=== PATIENT | female | born 1945 | race Caucasian/White ===

== ENCOUNTER 2017-07-21 00:12 | Emergency (ER) | payer OTHER ==
[~2017-07-21] VITALS: Ht 162.6 cm; Wt 72.6 kg
[~2017-07-21 00:12] MED LIST: ALOGLIPTIN25 MG PO; AMPICILLIN TRI250 MG; ASPIR 8181 MG PO; AZITHROMYCIN500 MG PO; BELSOMRA20 MG PO; CIPRO500 MG PO; CIPROFLOXACIN500 M1 PO; CRESTOR10 MG PO; CYMBALTA60 MG PO; FLAGYL500 MG PO; FLEXERIL PO; HYDROCODONE-AP1 EAC6 PO; KEFLEX500 MG PO; KEPPRA 500 MG500 M1; KEPPRA 500 MG500 M1 PO; LEVOTHROID 00.075 M1 PO; LEVOTHYROXIN0.075 MG PO; LEXAPRO20 MG PO; LORAZEPAM 1 MG T1 M1 PO; MEDROL DOSPAK21 TA1; METFORMIN HCL500 MG PO; PERCOCET 5-3251 EACH PO; PREMARIN1.25 MG PO; PRINIVIL10 MG PO; SEIZURE MEDS; SERTRALINE HCL100 MG PO; SIMVASTATIN40 MG PO; SYMBICORT160 MCG/4. INH; SYMBICORT160 MCG/41 INH; TRILIPIX135 MG PO; VENTOLIN HFA 1818 GM INH; VITAMIN B-12500 MCG PO; XANAX1 MG PO
[2017-07-21] MEDS ORDERED: KEPPRA 500 MG500 M1 (00:20)
[2017-07-21 00:30] LABS: ABSOLUTE BASOPHILS 0.2 thou/uL (0.0-0.2); ABSOLUTE EOSINOPHILS 0.7 thou/uL (0.0-0.7); ABSOLUTE LYMPHOCYTES 3.4 thou/uL (0.8-5.3); ABSOLUTE MONOCYTES 1.4 thou/uL (0.0-1.2); ABSOLUTE NEUTROPHILS 12.8 thou/uL (1.6-8.1); BASOPHILS 0.9 %; EOSINOPHILS 3.9 %; HEMATOCRIT 38.1 % (37.0-47.0); HEMOGLOBIN 12.6 gm/dL (12.0-15.0); LYMPHOCYTES 18.6 %; MCH 28.6 pg (26.0-34.0); MCHC 33.1 g/dL (28.0-37.0); MCV 86.3 fL (80.0-100.0); MONOCYTES 7.5 %; MPV 8.2 fl. (7.2-11.1); NUCLEATED RBCS 0 /100WBC; PLATELET COUNT* 352 thou/uL (150-400); POLYS 69.1 %; RBC 4.42 mil/uL (4.20-5.00); RDW-CV 13.9 % (10.5-14.5); WBC 18.5 thou/uL (4.0-11.0)
[2017-07-21 00:37] LABS: CALCIUM 8.8 mg/dL (8.5-10.1); POTASSIUM 3.8 mmol/L (3.5-5.1)
[2017-07-21 00:42] LABS: ALBUMIN 3.2 g/dL (3.4-5.0); TOTAL BILIRUBIN 0.3 mg/dL (<0.1-1.0); TOTAL PROTEIN 7.7 g/dL (6.4-8.2)
[2017-07-21 00:57] LABS: URINE BILIRUBIN NEGATIVE (Negative); URINE BLOOD NEGATIVE (Negative); URINE CLARITY CLEAR; URINE COLOR STRAW; URINE GLUCOSE-RANDOM NEGATIVE (Negative); URINE KETONES NEGATIVE (Negative); URINE LEUKOCYTES-REFLEX NEGATIVE (Negative); URINE NITRITE-REFLEX NEGATIVE (Negative); URINE PROTEIN NEGATIVE (Negative); URINE SPECIFIC GRAVITY <= 1.005 (1.005-1.030); URINE UROBILINOGEN 0.2 E.U./dl (0.2-1.0)
[2017-07-21] MEDS ORDERED: HYDROCODON-ACE1 EAC8 PO (02:42)
[2017-07-21] MEDS ORDERED: CIPROFLOXACIN500 M1 PO (02:42)
[2017-07-21] MEDS ORDERED: FLAGYL500 MG PO (02:42)
[2017-07-21 03:37] VITALS: BP 137/77
[2018-03-09] MEDS ORDERED: MELATONIN5 M1 PO (10:55)
== END 2017-07-21 03:35 | disposition home or self-care (01) ==
LOC: M.ERS 00:12
PROVIDERS: Emergency Medicine
DX: K57.92 Diverticulitis of intestine, part unspecified, without perforation or abscess without bleeding (principal); F32.9 Major depressive disorder, single episode, unspecified; J45.909 Unspecified asthma, uncomplicated; F41.9 Anxiety disorder, unspecified; Z88.6 Allergy status to analgesic agent; Z91.012 Allergy to eggs

== ENCOUNTER 2017-11-29 21:55 | Inpatient (IN) | payer OTHER ==
[~2017-11-29] VITALS: Ht 162.6 cm; Wt 75.3 kg
[~2017-11-29 21:55] MED LIST changes: +HYDROCODON-ACE1 EAC8 PO
[2017-11-29 22:03] VITALS: BP 121/66
[2017-11-29 23:06] LABS: HEMOGLOBIN 13.3 gm/dL (12.0-15.0); MCH 28.6 pg (26.0-34.0); MCHC 33.2 g/dL (28.0-37.0); MCV 86.2 fL (80.0-100.0); MPV 9.1 fl. (7.2-11.1); NUCLEATED RBCS 0 /100WBC; PLATELET COUNT* 373 thou/uL (150-400); RBC 4.64 mil/uL (4.20-5.00); RDW-CV 13.3 % (10.5-14.5); WBC 20.5 thou/uL (4.0-11.0)
[2017-11-29 23:09] LABS: ANION GAP 16 mmol/L (7-16); BUN 11 mg/dL (7-18); CALCIUM 9.6 mg/dL (8.5-10.1); CHLORIDE 96 mmol/L (98-107); CO2 24 mmol/L (21-32); CREATININE 1.3 mg/dL (0.6-1.3); GLUCOSE 170 mg/dL (70-99); POTASSIUM 3.5 mmol/L (3.5-5.1); SODIUM 136 mmol/L (136-145)
[2017-11-29 23:13] LABS: URINE BILIRUBIN NEGATIVE (Negative); URINE BLOOD NEGATIVE (Negative); URINE CLARITY CLEAR; URINE COLOR YELLOW; URINE GLUCOSE-RANDOM NEGATIVE (Negative); URINE KETONES TRACE (Negative); URINE LEUKOCYTES-REFLEX 1+ (Negative); URINE NITRITE-REFLEX NEGATIVE (Negative); URINE PROTEIN NEGATIVE (Negative); URINE SPECIFIC GRAVITY 1.025 (1.005-1.030); URINE UROBILINOGEN 0.2 E.U./dl (0.2-1.0)
[2017-11-29 23:14] LABS: APTT 27.6 Seconds (25.0-31.3); PROTIME 9.8 Seconds (9.20-11.50)
[2017-11-29 23:16] LABS: ALBUMIN 3.5 g/dL (3.4-5.0); ALKALINE PHOSPHATASE 129 U/L (46-116); LIPASE 97 U/L (73-393); SGOT 13 U/L (15-37); SGPT 19 U/L (30-65); TOTAL BILIRUBIN 0.5 mg/dL (<0.1-1.0); TOTAL PROTEIN 8.8 g/dL (6.4-8.2); TROPONIN-I LEVEL <0.06 ng/mL (<0.06)
[2017-11-30] LABS: SQUAMOUS >10 Many /LPF (0-3)
[2017-11-30 00:01] LABS: CASTS None Seen /LPF (None Seen); CRYSTALS None Seen /LPF (None Seen); URINE RBC 0-2 Rare /HPF (0-2); URINE WBC-REFLEX 0-5 Rare /HPF (0-5)
[2017-11-30 00:08] LABS: ABSOLUTE EOSINOPHILS 0.4 thou/uL (0.0-0.7); ABSOLUTE LYMPHOCYTES 3.1 thou/uL (0.8-5.3); PLATELET ESTIMATE ADEQUATE
[2017-11-30 01:45] VITALS: BP 121/73
[2017-11-30 02:19] VITALS: BP 143/63
--- NOTE | 2017-11-30 02:46 | NUR ---
PATIENT ARRIVED ON UNIT AT APPROX 0200. HAND POLISHER ASSESSMENT COMPLETED DOCUMENTED. SON AND GRANDSON AT BEDSIDE. ADMISSION EDUCATION COMPLETED WITH PATIENT AND FAMILY. SON STATED THAT HE WOULD BRING IN A COPY OF THE AD.DIR FOR PEDRITO TO HAVE. HE WAS UNSURE OF WHAT HER STATED WISHES ARE AT THIS TIME. IV PATENT TO FLUIDS. FALL RISK PRECAUTIONS IN PLACE. PATIENT READING NSR ON THE MONITOR.
--- NOTE | 2017-11-30 05:24 | NUR ---
PATIENT RESTED WEE THROUGH REST OF NIGHT. UP TO USE THE RESTROOM ONE TIME. VERY STEADY GAIT AND CALLED OUT APPROPRIATELY. FALL RISK PRECAUTIONS REMOVED UPON WITNESSING AMBULATION AND SELF CARE MANAGEMENT. NO COMPLAINTS OF PAIN OR DISCOMFORT NOTED THROUGH THE NIGHT.
--- NOTE | 2017-11-30 06:11 | NUR ---
ASSUMED PATIENT CARE AT 1900. SPOUSE AT BEDSIDE AT THAT TIME. PATIENT HAVING COMPLAINTS OF PAIN AT SURGICAL SITE. CONTROLLED WITH PO MEDS. PATIENT HAS DIFFICULTY SWALLOWING, TAKES MEDICATION CUT IN HALF. IV IN RIGHT ARM AT THIS TIME. 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 UNABLE TO START IV IN LEFT ARM. DID NOT START IV FLUIDS R/T ABOVE. PATIENT TOLERATING CLEAR LIQUID DIET AND WILL MOVE TO REG THIS AM WITH BREAKFAST. ABLE TO AMBULATE WITH STB TO RESTROOM. FAB PATENT AND DRAINING SEROSANGUINEOUS FLUID. PATIENT AND FAMILY HOPING TO GO HOME TODAY.
[2017-11-30 08:51] VITALS: BP 112/64
[2017-11-30 08:52] LABS: CALCIUM 8.7 mg/dL (8.5-10.1); CREATININE 1.1 mg/dL (0.6-1.3); MAGNESIUM 1.6 mg/dL (1.8-2.4); POTASSIUM 4.4 mmol/L (3.5-5.1)
--- NOTE | 2017-11-30 12:31 | EKG ---
[place] [address] ELECTROCARDIOGRAM REPORT Name: PASCUAL GRANADOS Room: [address] ADM IN M.R.#: [id number] Admission: 11/30/17 Attend Phys: Duy Soriano, Discharge: Date of : 47 Report #: [id number] THIS REPORT FOR: //name// [facility] ED Test Date: 2017-11-29 Test Time: 23:12:32 Pat Name: PASCUAL GRANADOS Department: Room: [facility] Gender: F Asbestos Handler: ANDRIY : 1945 Requested By: Sandi Michelle Order Number: [id number] MD: Francisco Matthews Measurements Intervals [place] Rate: 77 P: 31 GA: 165 QRS: 6 QRSD: 76 T: 48 QT: 371 QTc: 420 Interpretive Statements Sinus rhythm LVH with secondary repolarization abnormality Baseline wander in lead(s) V6 Compared to ECG 02/08/2016 11:50:16 Left ventricular hypertrophy now present Early repolarization now present Electronically Signed On 11-30-2017 12:31:23 CDT by Francisco Matthews [email or web address] <ELECTRONICALLY SIGNED> By: Francisco Matthews MD, FAC 11/30/17 1231 2312 231 Francisco Matthews MD, FAC /EPI
--- NOTE | 2017-11-30 13:00 | NUR ---
Received report from Tele nurse at 124 1300 pt arrived on [facility] to [facility] to room 108 via wheelchair. pt IV in left hand is patent with NS infusing at 100ml/hr. pt is pleasant and cooperative with cares. upon arrival to [facility] pt had a new bag of NS hanging with old bag still infusing, old bag disconnected and new bag attached, pt in bed resting, call light in reach, will cont to monitor.
[2017-11-30 14:00] VITALS: BP 131/63
--- NOTE | 2017-11-30 14:05 | NUR ---
ASSUMED CARE AT 0730 AFTER RECEIVING REPORT FROM MIRACLE RN. PT A & O X4. DISABILITY ATTORNEY IN PLACE, SR. ASSESSMENT COMPLETE DOCUMENTED. MEDS PER JUN. PT WITH NO C/O PAIN OR DISTRESS. CALL LIGHT IN REACH. PT TO MOVE TO ROOM 108. REPORT CALLED TO JEFF RN. PT TRANSPORTED VIA WC FROM UNIT WITH ASSIST OF NURSING STAFF. PT HAS ALL BELONGINGS.
--- NOTE | 2017-11-30 14:11 | NUR ---
1350 pt called down to nursing station and requested to talk to a patient advocated JOSE MANUEL, this nurse went down to pt room 108 to talk with . He informed this nurse that he was VERY upset that his was transferred to another unit, he was not informed of this and there was an agreement when she was admitted that she would stay on a heart monitor d/t past medical history. Now that has not happended and he wants to talk with a patient advocate, the ER on admission at [facility] told him that if there was an issue that is who he should contact. This nurse is unaware of a patient advocate, SW not in house today, contacted lead housekeeper and informed her of situation. 1410 radiology supervisor arrived on [facility] to talk with family of pt.
--- NOTE | 2017-11-30 14:15 | NUR ---
ASSUMED CARE OF PT FROM TELE TRANSFER TO [facility] ROOM 108, PT UP AD JAY. LEFT HAND IV NS@80 HR, PT FAMILY INVOLVED IN CARES, FORGETFUL AT TIMES OTHERWISE ABLE TO MAKE NEEDS KNOWN. ASSUMED CARE OF PT AND GREETED, SHE IS PLEASANT AND COOPERATIVE WITH CARES, VS WNL. NO C/O PAIN AT THIS TIME, WILL CONT TO MONITOR. CALL LIGHT IN REACH
--- NOTE | 2017-11-30 18:44 | NUR ---
PT IN BED RESTING AT THIS TIME, IV SITE CHHANGED D/T INFILTRATION IN LEFT HAND, NEW IV TO RIGHT HAND PT TALKATIVE THIS EVENING. UP AD JAY AND AMBULATED TO RESTROOM WITH STAND BY ASSIST. HAS NO C/O AT THIS TIME, HOURLY ROUNDING MAINTAINED.
[2017-11-30 21:00] VITALS: BP 115/52
[2017-12-01 04:00] VITALS: BP 114/43
[2017-12-01 07:04] LABS: HEMATOCRIT 30.8 % (37.0-47.0); HEMOGLOBIN 10.3 gm/dL (12.0-15.0); MCHC 33.4 g/dL (28.0-37.0); MCV 87.1 fL (80.0-100.0); MPV 8.8 fl. (7.2-11.1); RBC 3.53 mil/uL (4.20-5.00); RDW-CV 13.7 % (10.5-14.5)
[2017-12-01 07:10] LABS: CALCIUM 7.8 mg/dL (8.5-10.1); MAGNESIUM 1.7 mg/dL (1.8-2.4); POTASSIUM 3.7 mmol/L (3.5-5.1)
--- NOTE | 2017-12-01 07:44 | NUR ---
Oriented x 2, she is forgetful, this shift she has has been cooperative and able to follow instructions. She's up with stand by assist to the bathroom. Her magnesium was low so it was replaced and redraw was done this am. She has slept intermittenly
[2017-12-01 08:00] VITALS: BP 121/54
--- NOTE | 2017-12-01 14:44 | NUR ---
SPOKE WITH PT.WHO WAS RESTING IN BED. SHE SAID SHE LIVES WITH HER . THEY HAVE A RAISED RANCH. HER DAUGHTER AND 2 GRANDCHILDREN LIVE DOWNSTAIRS. DAUGHTER IS HOME DURING THE DAY AND DOES THE LAUNDRY, MOST OF THE COOKING,ETC. PT.HAS A WALKER AND CANE. SHE DOES NOT HAVE TO USE THEM. PT.DOES NOT DRIVE. HER FAMILY TAKES HER PLACES OR DOES HER ERRANDS. SHE PLANS ON RETURNING HOME AT DISCHARGE.
[2017-12-01 16:00] VITALS: BP 79/62
--- NOTE | 2017-12-01 16:09 | NUR ---
PATIENT UP TO BATHROOM WITH ASSISTANCE. BM NOTED TODAY. IV SL, SCHED ABX INFUSED ORDERED. PATIENT ADVANCED TO REG DIET THIS AFTERNOON, TOLERATING. DIVERTICULITIS DIET INFORMATION PRINTED AND GIVEN TO PATIENT. PATIENT HOPING TO GO HOME TOMORROW.
[2017-12-01 21:00] VITALS: BP 146/40
[2017-12-02 05:34] LABS: HEMATOCRIT 33.1 % (37.0-47.0); HEMOGLOBIN 10.9 gm/dL (12.0-15.0); MCH 28.7 pg (26.0-34.0); MCV 87.2 fL (80.0-100.0); RBC 3.79 mil/uL (4.20-5.00); RDW-CV 13.6 % (10.5-14.5); WBC 15.4 thou/uL (4.0-11.0)
[2017-12-02 05:47] LABS: CALCIUM 7.8 mg/dL (8.5-10.1); MAGNESIUM 1.4 mg/dL (1.8-2.4); POTASSIUM 3.8 mmol/L (3.5-5.1)
--- NOTE | 2017-12-02 05:57 | NUR ---
PATIENT SLEPT PART OF THE NIGHT. IV REMAINS SALINE LOCKED. PATIENT HAS HAD SEVERAL STOOLS THIS SHIFT. PATIENT IS HOPING TO GO HOME TODAY. WILL CONTINUE TO MONITOR.
[2017-12-02 08:15] VITALS: BP 146/62
[2017-12-02] MEDS ORDERED: CEFUROXIME500 MG PO (08:16)
[2017-12-02] MEDS ORDERED: LEVSIN0.125 MG PO (08:16)
[2017-12-02] MEDS ORDERED: PROBIOTIC1 EAC1 PO (08:16)
[2017-12-02] MEDS ORDERED: PHENERGAN 25 MG25 M1 PO (08:16)
[2017-12-02 10:09] VITALS: BP 146/62
--- NOTE | 2017-12-02 11:18 | NUR ---
PATIENT RECEIVED IV ABX THIS AM. PATIENT MG 1.4, UNABLE TO INFUSE IV BAG OF MG IV SITE WAS LEAKING, OK PER DR. HIGGINS TO GIVE PO DOSE BID AND THEN DISCHARGE. CLARIFIED WITH DR. HIGGINS IF MG LEVEL NEEDED TO BE DRAWN AGAIN PRIOR TO DISCHARGE, OK TO SEND PATIENT WITHOUT REDRAW. IV DC'D. PATIENT UP TO BATHROOM, SMALL FREQUENT BM'S. RATING ABD PAIN AN 9/10, PRN HYDROCODONE GIVEN AND PATIENT TOOK A NAP. VERBALIZES UNDERSTANDING OF PAPERWORK AND SCRIPTS. PATIENT TAKEN OUT VIA WHEELCHAIR WITH NURSING STAFF AND SPOUSE WITH ALL BELONGINGS.
[2018-03-09] MEDS ORDERED: MELATONIN5 M1 PO (10:55)
== END 2017-12-02 11:24 | disposition home or self-care (01) | DRG 872 ==
LOC: M.ERS 21:55 → M.ORTHSURG 11-30 00:45 → M.TBA-ER 11-30 00:45 → M.2W 11-30 00:45 → M.ORTHSURG 11-30 12:52
PROVIDERS: Internal Medicine; Personal Emergency Response Attendant; ADMIT Family Medicine
DX: A41.9 Sepsis, unspecified organism (principal); K57.32 Diverticulitis of large intestine without perforation or abscess without bleeding; F32.9 Major depressive disorder, single episode, unspecified; F41.9 Anxiety disorder, unspecified; J45.909 Unspecified asthma, uncomplicated; G30.9 Alzheimer's disease, unspecified; F02.80 Dementia in other diseases classified elsewhere, unspecified severity, without behavioral disturbance, psychotic disturbance, mood disturbance, and anxiety; I10 Essential (primary) hypertension; G40.909 Epilepsy, unspecified, not intractable, without status epilepticus; E03.9 Hypothyroidism, unspecified; G47.33 Obstructive sleep apnea (adult) (pediatric); Z90.5 Acquired absence of kidney; Z90.49 Acquired absence of other specified parts of digestive tract; Z90.710 Acquired absence of both cervix and uterus; Z79.82 Long term (current) use of aspirin; Z79.899 Other long term (current) drug therapy; Z88.8 Allergy status to other drugs, medicaments and biological substances; Z91.012 Allergy to eggs

== ENCOUNTER → 2018-03-16 | Day surgery (SDC) | payer OTHER ==
[~2018-03-16] VITALS: Ht 10.2 cm; Wt 67.6 kg
[~2018-03-16] MED LIST changes: +CEFUROXIME500 MG PO; +LEVSIN0.125 MG PO; +MELATONIN5 M1 PO; +PHENERGAN 25 MG25 M1 PO; +PROBIOTIC1 EAC1 PO
--- NOTE | ~2018-03-16 | PROC ---
[address] [address] PROCEDURE REPORT Name: PASCUAL GRANADOS Room: [facility].#: [id number] Admission: 03/16/18 Attend Phys: Nick Epstein MD Discharge: Date of : 47 Report #: [id number] THIS REPORT FOR: //name// For GI report, please see the Provation report in Perceptive 7. By: 06Medical Records Staff ENDER /ALCON
[2018-03-16 08:25] LABS: HEMATOCRIT 40.2 % (37.0-47.0); HEMOGLOBIN 13.3 gm/dL (12.0-15.0); MCH 29.4 pg (26.0-34.0); MCV 88.8 fL (80.0-100.0); MPV 8.4 fl. (7.2-11.1); RBC 4.53 mil/uL (4.20-5.00); RDW-CV 13.3 % (10.5-14.5); WBC 16.2 thou/uL (4.0-11.0)
[2018-03-16 08:42] LABS: CALCIUM 9.3 mg/dL (8.5-10.1); CREATININE 1.2 mg/dL (0.6-1.3); POTASSIUM 3.9 mmol/L (3.5-5.1)
--- NOTE | 2018-03-19 11:09 | PATH ---
[address] [address] PATHOLOGY RPT PROCEDURE Name: KAIT GRANADOS Room: [facility]..#: [id number] Admission: 03/16/18 Date of : 47 Discharge: Report #: [id number] Path Case #: [id number] [facility] Accession Number: [id number] . 01 Material submitted: . DISTAL TRANSVERSE COLON POLYP X4 . 01 Clinical history: . Hx of renal cell carcinoma, Hx of diverticulitis . 02 Diagnosis: Tissue submitted as "distal transverse colon polyps x 4": - Two tubular adenomas and third fragment suggestive of tubular adenoma, negative for high grade dysplasia. (BAKARI/db; 03/17/2018) LBQ/03/17/2018 . 02 Electronically signed: . Haja Gregory MD, Pathologist NPI- [id number] . 01 Gross description: . Received in formalin labeled "Kait Granados, distal transverse colon polyps x4," are 3 segments of castle soft tissue measuring 0.8 x 0.5 x 0.2 cm in aggregate dimensions and ranging from 0.3 to 0.5 cm in maximum dimension. The specimen is submitted entirely in cassette A1. After filtration of the specimen container, no additional tissue was recovered. (TSD; 03/16/2018) TOB/TOB . 02 Pathologist provided ICD-10: D12.3 . 02 CPT . 023490 Specimen Comment: A courtesy copy of this report has been sent to Specimen Comment: [phone], , , . Specimen Comment: Report sent to ,DR GUTIERREZ,DR SNYDER Specimen Comment: DR MARIO Specimen Comment: A duplicate report has been generated due to demographic updates. Performed at: [address] [facility] [id number] MD Alan Mantilla MD Phone: [phone] Performed at: [address] [id number] [place] [address] PATHOLOGY RPT PROCEDURE Name: KAIT GRANADOS Room: [facility].#: [id number] Admission: 03/16/18 Date of : 47 Discharge: Report #: [id number] Path Case #: [id number] MD Haja Gregory [place] Phone: [phone]
== END | disposition home or self-care (01) ==
LOC: M.SUR 03-12 09:28
PROVIDERS: Internal Medicine Gastroenterology
DX: D12.3 Benign neoplasm of transverse colon (principal); K57.30 Diverticulosis of large intestine without perforation or abscess without bleeding; Z85.528 Personal history of other malignant neoplasm of kidney; Z91.040 Latex allergy status; Z88.8 Allergy status to other drugs, medicaments and biological substances; Z79.899 Other long term (current) drug therapy; Z79.82 Long term (current) use of aspirin; Z98.890 Other specified postprocedural states